=== PATIENT | male | born 1960 | race Hispanic/Latino ===

== ENCOUNTER 2018-08-15 20:55 | Emergency (ER) | payer BC ==
[2018-08-15] MEDS ORDERED: Sodium Chloride 0.9% 500 ML IV STA (22:01)
[2018-08-15 22:53] LABS: ALB/GLOB RATIO 1.2 (1.0-2.1); ALBUMIN 4.3 g/dL (3.5-5.0); ALT/SGPT 42 U/L (21-72); AST/SGOT 50 U/L (17-59); BLOOD UREA NITROGEN 12 mg/dl (9-20); CALCIUM 9.1 mg/dL (8.4-10.2); GFR NON-AFRICAN AMERICAN > 60
[2018-08-15 22:54] LABS: URINE BACTERIA FEW (<OCC); URINE BILIRUBIN NEGATIVE (NEGATIVE); URINE BLOOD SMALL (NEGATIVE); URINE CLARITY SLIGHTY-CLOUDY (Clear); URINE COLOR YELLOW (YELLOW); URINE GLUCOSE (UA) >=500 mg/dL (NEGATIVE); URINE HYALINE CAST 0-2 /hpf (0-2); URINE LEUKOCYTE ESTERASE TRACE Leu/uL (Negative); URINE PROTEIN 30 mg/dL (NEGATIVE); URINE UROBILINOGEN 0.2-1.0 mg/dL (0.2-1.0)
[2018-08-15 22:56] LABS: BASO % 0.2 % (0.0-2.0); EOS % 0.3 % (0.0-4.0); HEMOGLOBIN 16.4 g/dL (12.0-18.0); LYMPH % 11.1 % (20.0-40.0); MEAN CORPUSCULAR HEMOGLOBIN 35.1 pg (27.0-31.0); MEAN CORPUSCULAR HGB CONC 34.1 g/dL (33.0-37.0); MEAN PLATELET VOLUME 7.3 fl (7.2-11.7); MONO # 1.3 K/uL (0.0-0.8); MONO % 14.9 % (0.0-10.0); NEUT # 6.5 K/uL (1.8-7.0); NEUT % 73.5 % (50.0-75.0); NRBC % 0.3 % (0.0-0.0); RBC 4.66 Mil/uL (4.40-5.90); RED CELL DISTRIBUTION WIDTH 13.1 % (11.5-14.5); WHITE BLOOD COUNT 8.9 K/uL (4.8-10.8)
[2018-08-15 22:57] LABS: INR 1.2; PROTHROMBIN TIME 13.7 Seconds (9.8-13.1)
[2018-08-15 23:29] VITALS: BP 110/68; PULSE 94; RESP 17; TEMP 100.3; O2SAT 95
--- NOTE | 2018-08-16 00:09 | ED PDOC ---
HPI: CCC, URI, Sore Throat Time Seen by Provider: 08/15/18 21:12 Chief Complaint (Nursing): Fever Chief Complaint (Provider): cough History Per: Patient History/Exam Limitations: no limitations Onset/Duration Of Symptoms: Days (x2) Current Symptoms Are (Timing): Still Present Additional Complaint(s): 58 year old male with pmHx of heart disease, presents to ED with a complaint of cough associated with productive clear phlegm, post-nasal drip, congestion, decreased appetite, headache, general weakness, and bodyaches for 2 days. Patient reports a fever today, thus, prompting ED visit. Otherwise, he denies chest pain, runny noses, recent sick contacts, or known sick contacts. PCP: Dr. Tj Latif Past Medical History Reviewed: Historical Data (c), Nursing Documentation, Vital Signs Vital Signs: Last Vital Signs Temp 100.3 F H 08/15/18 23:54 Pulse 94 H 08/15/18 23:54 Resp 17 08/15/18 23:54 BP 110/68 08/15/18 23:54 Pulse Ox 95 08/15/18 23:54 - Medical History PMH: HTN - Surgical History Surgical History: CABG, Coronary Stent - Family History Family History: States: [place] - Social History Current smoker - smoking cessation education provided: No - Immunization History Hx Influenza Vaccination: No - Home Medications Home Medications: Ambulatory Orders Medication Instructions Recorded Patient Own Control 1 tab PO PRN PRN 08/21/17 Ciprofloxacin [Cipro] 1 tab PO BID #14 tab 08/15/18 Oseltamivir Cap [Tamiflu] 75 mg PO BID #10 cap 08/15/18 - Allergies Allergies/Adverse Reactions: Allergies Allergy/AdvReac Type Severity Reaction Status Date / Time No Known Allergies Allergy Unverified 08/15/18 20:58 Review of Systems ROS Statement: Except As Marked, All Systems Reviewed And Found Negative Constitutional: Positive for: Fever, Weakness (general), Other (general bodyaches) ENT: Positive for: Nose Congestion. Negative for: Nose Discharge Cardiovascular: Negative for: Chest Pain Respiratory: Positive for: Cough, Sputum (clear) Gastrointestinal: Positive for: Other (decreased appetite) Neurological: Positive for: Headache Physical Exam - Reviewed Nursing Documentation Reviewed: Yes Vital Signs Reviewed: Yes - Physical Exam Appears: Positive for: No Acute Distress (tired appearance) Head Exam: Positive for: ATRAUMATIC, NORMOCEPHALIC Skin: Positive for: Warm (febrile), Dry Eye Exam: Positive for: EOMI, PERRL ENT: Positive for: Pharynx Is (clear), Other (tacky mucous membranes). Negative for: Tonsillar Exudate Neck: Positive for: Painless ROM, Supple Cardiovascular/Chest: Positive for: Tachycardia (with regular rhythm). Negative for: Murmur Respiratory: Positive for: Normal Breath Sounds (lungs clear to auscultation). Negative for: Accessory Muscle Use, Rales, Rhonchi, Wheezing, Respiratory Distress Gastrointestinal/Abdominal: Positive for: Soft. Negative for: Tenderness Back: Positive for: Normal Inspection. Negative for: Muscle Spasm Extremity: Positive for: Normal ROM. Negative for: Deformity Lymphatic: Negative for: Adenopathy Neurologic/Psych: Positive for: Alert. Negative for: Motor/Sensory Deficits - Laboratory Results Result Diagrams: 08/15/18 22:30 08/15/18 22:30 - ECG O2 Sat by Pulse Oximetry: 95 (RA) Pulse Ox Interpretation: Normal Medical Decision Making Medical Decision Making: Initial Impression: Febrile illness with URI symptoms Differential diagnosis includes but not limited to: URI; viral syndrome; influenza; pneumonia; bronchiolitis; sepsis Initial Plan: * Labs * CXR * Cipro 500mg PO * IV fluids * Tamiflu Cap 75mg PO * Toradol 15mg IVP * Tylenol 975mg PO * Blood culture * Urine culture * Influenza Time: 7 --Labs reviewed: urine is indicative for infection, otherwise, no significant clinical abnormality. (+) influenza. Upon re-evaluation, temperature and HR are normalized. Provider relayed all findings to patient with education on the importance of strict rest, increase in fluid intake, self isolation, and to fo llow up with PCP in 1 week. Patient agrees to plan of care and eager to go home. Patient is medically stable for discharge home and return precautions are discussed. Scribe Attestation: Documented by Norma Mcbride, acting as a scribe for Frances Mcdaniel MD. Provider Scribe Attestation: All medical record entries made by the Scribe were at my direction and personally dictated by me. I have reviewed the chart and agree that the record accurately reflects my personal performance of the history, physical exam, medical decision making, and the department course for this patient. I have also personally directed, reviewed, and agree with the discharge instructions and disposition. Disposition - Clinical Impression Clinical Impression: Influenza, UTI (urinary tract infection) - Patient ED Disposition Is Patient to be Admitted: No Counseled Patient/Family Regarding: Studies Performed, Diagnosis, Need For Followup, Rx Given - Disposition Referrals: Tj Latif MD [Staff Provider] - (FOLLOW UP WITH DR LATIF SATURDAY FOR REEVALUATION) Disposition: Routine/Home Disposition Time: 23:37 Condition: IMPROVED Additional Instructions: RETURN TO ER IMMEDIATELY FOR WORSENING SYMPTOMS (CHEST PAIN, SHORTNESS OF BREATH , FAINTING OR NEAR FAINTING, ETC.) TAKE MEDICATIONS PRESCRIBED TAKE TYLENOL AND/OR MOTRIN NEEDED FOR FEVER DRINK PLENTY OF HYDRATING FLUIDS AND REST AT HOME (SELF-QUARANTINE) Prescriptions: Ciprofloxacin [Cipro] 1 tab PO BID #14 tab Oseltamivir Cap [Tamiflu] 75 mg PO BID #10 cap Instructions: Flu, Adult (DC), Urinary Tract Infection, Adult (DC) Forms: [facility] ([place]), [facility] ED School/Work Excuse
--- NOTE | 2018-08-16 18:15 | RAD ---
Date of service: 08/15/2018 HISTORY: Fever COMPARISON: No prior. TECHNIQUE: Chest PA and lateral FINDINGS: LUNGS: Minor bibasilar atelectasis. PLEURA: No significant pleural effusion identified. No pneumothorax apparent. CARDIOVASCULAR: No significant aortic atherosclerotic calcification present. Cardiomegaly. Sternotomy wires. No pulmonary vascular congestion. OSSEOUS STRUCTURES: No significant abnormalities. VISUALIZED UPPER ABDOMEN: Normal. OTHER FINDINGS: None. IMPRESSION: Minor bibasilar atelectasis
== END 2018-08-16 | disposition home or self-care (01) ==
LOC: H.ER 20:55
DX: J11.1 Influenza due to unidentified influenza virus with other respiratory manifestations (principal); N39.0 Urinary tract infection, site not specified
CPT/HCPCS: 71046; 80053; 81003; 85025; 85610; 85730; 87040; 87086; 87181; 87804; 96360; 96374; 99283; J1885; J7030